=== PATIENT | female | born 1960 | race Caucasian/White ===

== ENCOUNTER 2016-11-14 19:39 | Emergency (ER) | payer BC ==
[2016-11-14 21:30] VITALS: BP 134/74
--- NOTE | 2016-11-14 22:08 | UC ---
Skin Complaint HPI - HPI Summary HPI Summary: Found sore area on R ribs/back this evening while brushing against the area, discovered it was a tick. Has not removed yet. - History of Current Complaint Chief Complaint: UCSkin Time Seen by Provider: 11/14/16 21:47 Stated Complaint: TICK BITE Hx Obtained From: Patient ?: No Onset/Duration: Lasting Hours Timing: Constant Onset Severity: Mild Current Severity: Mild Pain Intensity: 2 Pain Scale Used: 0-10 Numeric Character: Pain, Redness, Raised Aggravating: Touch Alleviating: Nothing - Allergy/Home Medications Allergies/Adverse Reactions: Allergies Allergy/AdvReac Type Severity Reaction Status Date / Time Amoxicillin Allergy Unknown Verified 11/14/16 21:31 Reaction Details Cefaclor [From Ceclor] Allergy Hives Verified 11/14/16 21:31 Cephalexin [From Keflex] Allergy Altered Verified 11/14/16 21:34 Mental Status Doxycycline Allergy Altered Verified 11/14/16 21:33 Mental Status Erythromycin Allergy Altered Verified 11/14/16 21:32 Mental Status Penicillins [PCN] Allergy Altered Verified 11/14/16 21:35 Mental Status Home Medications: Home Medications NK [No Home Medications Reported] 11/14/16 [History Confirmed 11/14/16] Review of Systems Constitutional: Negative Skin: Other - tick R ribs Eyes: Negative ENT: Negative Respiratory: Negative Cardiovascular: Negative Gastrointestinal: Negative Genitourinary: Negative Motor: Negative Neurovascular: Negative Musculoskeletal: Negative Neurological: Negative Psychological: Negative All Other Systems Reviewed And Are Negative: Yes PMH/Surg Hx/FS Hx/Imm Hx Previously Healthy: Yes Endocrine History Of: Denies: Diabetes, Thyroid Disease Cardiovascular History Of: Denies: Cardiac Disorders, Hypertension Respiratory History Of: Denies: COPD, Asthma GI/ History Of: Denies: Ulcer - Surgical History Surgical History: Yes Surgery Procedure, Year, and Place: D&C 1978 - Family History Known Family History: Negative: Blood Disorder - Social History Alcohol Use: Weekly Substance Use Type: None Smoking Status (MU): Never Smoked Tobacco - Immunization History Most Recent Influenza Vaccination: denies Physical Exam Triage Information Reviewed: Yes Appearance: Well-Appearing, No Pain Distress, Well-Nourished Vital Signs: Initial Vital Signs Temp 98.8 F 11/14/16 21:22 Pulse 68 11/14/16 21:22 Resp 16 11/14/16 21:22 BP 134/74 11/14/16 21:22 Pulse Ox 100 11/14/16 21:22 Vital Signs Reviewed: Yes Eye Exam: Normal Eyes: Positive: Conjunctiva Clear ENT Exam: Normal ENT: Positive: Normal ENT inspection, Hearing grossly normal, Pharynx normal, TMs normal Dental Exam: Normal Neck exam: Normal Neck: Positive: Supple, Nontender, No Lymphadenopathy Respiratory Exam: Normal Respiratory: Positive: Chest non-tender, Lungs clear, Normal breath sounds, No respiratory distress, No accessory muscle use Cardiovascular Exam: Normal Cardiovascular: Positive: RRR, No Murmur Musculoskeletal Exam: Normal Neurological Exam: Normal Neurological: Positive: Alert Psychological Exam: Normal Skin Exam: Other - tick removed with tick twisters from R trunk, pt mally well. Tick bite site benign with only local reactive erythema Course/Dx - Diagnoses Provider Diagnoses: tick removal Discharge - Discharge Plan Condition: Stable Disposition: HOME Patient Education Materials: Tick Bite (ED) Referrals: No Primary Care Phys,NOPCP [Primary Care Provider] - Additional Instructions: If you develop any of the following, please see your physician promptly: (1) Fever, chills, or generalized malaise associated with a headache. (2) A red round area at the site of the bite (or elsewhere) (3) Joint pain, joint swelling or generalized weakness. (4) Redness, swelling, or drainage at the site of the bite. Check yourself, your children and your pets for ticks whenever you've been in an area where ticks live. To remove a tick, grasp it firmly with some tweezers or a string in a slipknot as close to its head as possible and pull it steadily. Ticks do not have a typical "head" attached to their body. There are mouth parts sticking out which they use to feed. If there are mouth parts left behind in the wound there is NO increased risk of Lyme infection; however, the chances of a bacterial skin infection (cellulitis) are higher. If mouth parts remain after tick removal, the best thing to do is apply warm soaks to the area 3-4 times per day to encourage the skin to expel the foreign material. WHEN A TICK IS NOT ENGORGED AND HAS BEEN ON LESS THAN 24 HOURS - THE RISK FOR LYME IS NEGLIGIBLE. YOU CAN REMOVE THE TICK AND OBSERVE THE AREA ON YOUR OWN. FOLLOW-UP CARE: You should contact your private physician for follow-up care if you develop spreading redness near the site of the bite or on any other areas of the body. If you are unable to get a timely appointment, or if you are worsening, call us or return for re-evaluation.
== END 2016-11-14 22:00 | disposition home or self-care (01) ==
LOC: UCEAST 19:39
DX: S30.860A Insect bite (nonvenomous) of lower back and pelvis, initial encounter (principal); W57.XXXA Bitten or stung by nonvenomous insect and other nonvenomous arthropods, initial encounter; Z88.3 Allergy status to other anti-infective agents; Z88.0 Allergy status to penicillin
CPT/HCPCS: 99201; G0463

== ENCOUNTER 2018-03-30 16:49 | Emergency (ER) | payer BC ==
[2018-03-30 17:24] VITALS: BP 147/89
--- NOTE | 2018-03-30 18:29 | UC ---
Lower Extremity/Ankle HPI - HPI Summary HPI Summary: fell today right foot pain and bruised right knee - History of Current Complaint Chief Complaint: UCLowerExtremity Stated Complaint: R FOOT/KNEE INJURY Time Seen by Provider: 03/30/18 18:12 Hx Obtained From: Patient ?: No Onset/Duration: Sudden Onset Pain Intensity: 2 Pain Scale Used: 0-10 Numeric Aggravating Factor(s): Standing, Ambulation Alleviating Factor(s): Rest, Elevation Able to Bear Weight: Yes - with pain - Allergies/Home Medications Allergies/Adverse Reactions: Allergies Allergy/AdvReac Type Severity Reaction Status Date / Time amoxicillin Allergy Unknown Verified 03/30/18 17:13 Reaction Details cefaclor Allergy Hives Verified 03/30/18 17:13 cephalexin Allergy Altered Verified 03/30/18 17:13 Mental Status doxycycline Allergy Altered Verified 03/30/18 17:13 Mental Status erythromycin base Allergy Altered Verified 03/30/18 17:13 Mental Status MS Amoxicillin [Amoxicillin] Allergy Unknown Verified 11/14/16 21:31 Reaction Details MS Cefaclor [From Ceclor] Allergy Hives Verified 11/14/16 21:31 MS Cephalexin [From Keflex] Allergy Altered Verified 11/14/16 21:34 Mental Status MS Doxycycline [Doxycycline] Allergy Altered Verified 11/14/16 21:33 Mental Status MS Erythromycin Allergy Altered Verified 11/14/16 21:32 [Erythromycin] Mental Status MS Penicillins [PCN] Allergy Altered Verified 11/14/16 21:35 Mental Status Penicillins Allergy Altered Verified 03/30/18 17:13 Mental Status PMH/Surg Hx/FS Hx/Imm Hx Previously Healthy: Yes - Surgical History Surgical History: Yes Surgery Procedure, Year, and Place: D&C 1978 - Family History Known Family History: Positive: None Negative: Blood Disorder - Social History Occupation: Employed Full-time Lives: With Family Alcohol Use: Weekly Substance Use Type: None Smoking Status (MU): Never Smoked Tobacco - Immunization History Most Recent Influenza Vaccination: denies Review of Systems Constitutional: Negative Skin: Negative Eyes: Negative ENT: Negative Respiratory: Negative Cardiovascular: Negative Gastrointestinal: Negative Genitourinary: Negative Motor: Negative Neurovascular: Negative Musculoskeletal: Arthralgia - lateral right foot pain, right knee and left elbow bruised Neurological: Negative Psychological: Negative Is Patient Immunocompromised?: No All Other Systems Reviewed And Are Negative: Yes Physical Exam Triage Information Reviewed: Yes Appearance: Well-Appearing, No Pain Distress, Well-Nourished Vital Signs: Initial Vital Signs Temp 99.5 F 03/30/18 17:09 Pulse 87 03/30/18 17:09 Resp 18 03/30/18 17:09 BP 147/89 03/30/18 17:09 Pulse Ox 97 03/30/18 17:09 Vital Signs Reviewed: Yes Eye Exam: Normal Eyes: Positive: Conjunctiva Clear ENT Exam: Normal ENT: Positive: Normal ENT inspection, Hearing grossly normal. Negative: Trismus , Muffled voice, Hoarse voice Dental Exam: Normal Neck exam: Normal Neck: Positive: Supple, Nontender Respiratory Exam: Normal Respiratory: Positive: Chest non-tender, No respiratory distress, No accessory muscle use Cardiovascular Exam: Normal Cardiovascular: Positive: RRR, Pulses Normal, Brisk Capillary Refill Musculoskeletal Exam: Other Musculoskeletal: Positive: Strength Intact, ROM Intact, Edema @ - right lateral foot Neurological Exam: Normal Neurological: Positive: Alert, Muscle Tone Normal Psychological Exam: Normal Skin Exam: Normal Diagnostics - Radiology No standard instances Xray Interpretation: Positive (See Comments) Radiology Interpretation Completed By: ED Physician, Radiologist Lower Extremity Course/Dx - Course Course Of Treatment: cam boot non weight bearing crutches, pain med rice for with ortho this week - Differential Dx/Diagnosis Provider Diagnoses: fracture right 5th MT Discharge - Sign-Out/Discharge Documenting (check all that apply): Patient Departure All imaging exams completed and their final reports reviewed: Yes - Discharge Plan Condition: Stable Disposition: HOME Prescriptions: Hydrocodone/Acetaminophen [Hydrocodone-Acetamin 5-325 mg] 1 each PO Q6HR PRN # 15 tablet MDD 4 PRN Reason: Pain Patient Education Materials: Crutch Instructions (ED), Foot Fracture in Adults (ED), Abrasion (ED), Hypertension (ED), R.I.C.E. Treatment (ED) [place]errals: [facility] [place]] - 1 Week (for bp re-check ) Marcelino Butler MD [Medical Doctor] - 3 Days (orthopedic MD) Additional Instructions: Please remain non weight bearing until seen by orthopedic MD. - Billing Disposition and Condition Condition: STABLE Disposition: Home - Attestation Statements Provider Attestation: Per institutional requirements, I have reviewed the chart, however, I was not consulted specifically or made aware of this patient by the midlevel provider. I did not personally evaluate, interact with , or disposition this patient.
[2018-03-30] MEDS ORDERED: HYDROcodone/ACETAMIN 5-325 MG* 1 TAB PO ONE (18:30)
[2018-03-30] MEDS ORDERED: Tetan/Diph/Pertus SYR(Tdap)* 0.5 ML SYR(BOOSTRIX) use SYR IM ONE (18:38)
--- NOTE | 2018-03-31 08:09 | RAD ---
Indication: Left foot injury. 3 views of the left foot are reviewed. There is a transverse nondisplaced fracture that is mildly comminuted fracture through the proximal diaphysis of the fifth metatarsal. The remainder of the foot including the calcaneus and talus are unremarkable. IMPRESSION: Nondisplaced fracture proximal fifth metatarsal which is mildly comminuted. R0
--- NOTE | 2018-04-01 12:11 | UC ---
- Progress Note Progress Note: Patient Name: ADRI ROBLES Medical Record#: [id number] Ordering Physician: Erlinda Montana NP Acct.#: [id number] : 1960 Age: 58 Sex: F Location: [facility] Exam Date: 03/30/181728 ADM Status: DEP ER Order Information: FOOT RIGHT 3+ VWS Accession Number: [id number] CPT: 00885 Indication: Left foot injury. 3 views of the left foot are reviewed. There is a transverse nondisplaced fracture that is mildly comminuted fracture through the proximal diaphysis of the fifth metatarsal. The remainder of the foot including the calcaneus and talus are unremarkable. IMPRESSION: Nondisplaced fracture proximal fifth metatarsal which is mildly comminuted. R0 <Electronically signed by Reny Aguillon MD in OV> 03/31/18804 Dictated By: Reny Aguillon MD Dictated Date/Time: 03/31/18804 Transcribed Date/Time: 03/31/18803 Copy to: CC:Erlinda Montana NP; Eren Arriaga MD; No Primary Care Phys,NOPCP [facility] [address] [address] ph ([phone]) ph ([phone]) ph ([phone]) This report is only to be considered final once signed by the Provider(s) as displayed in the "<Electronically Signed by >" field (s). Absence of a signature indicates the report is in a draft status and still needs to be finalized. In the event this document was created by someone other than the signing Provider, the individual initiating the document will be listed in the "Entered by:" or "Dictated by:" jo. 1 of 1 Discharge - Sign-Out/Discharge Documenting (check all that apply): Post-Discharge Follow Up All imaging exams completed and their final reports reviewed: Yes - Discharge Plan Condition: Stable Disposition: HOME Prescriptions: Hydrocodone/Acetaminophen [Hydrocodone-Acetamin 5-325 mg] 1 each PO Q6HR PRN # 15 tablet MDD 4 PRN Reason: Pain Patient Education Materials: Crutch Instructions (ED), Foot Fracture in Adults (ED), Abrasion (ED), Hypertension (ED), R.I.C.E. Treatment (ED) Referrals: [facility] [place] [facility] [Outside] - 1 Week (for bp re-check ) Marcelino Butler MD [Medical Doctor] - 3 Days (orthopedic MD) Additional Instructions: Please remain non weight bearing until seen by orthopedic MD. - Billing Disposition and Condition Condition: STABLE Disposition: Home
== END 2018-03-30 19:20 | disposition home or self-care (01) ==
LOC: UCEAST 16:49
DX: S92.354A Nondisplaced fracture of fifth metatarsal bone, right foot, initial encounter for closed fracture (principal); S80.01XA Contusion of right knee, initial encounter; S50.02XA Contusion of left elbow, initial encounter; W19.XXXA Unspecified fall, initial encounter; Y93.9 Activity, unspecified; Y92.9 Unspecified place or not applicable; Z23 Encounter for immunization; Z88.1 Allergy status to other antibiotic agents; Z88.0 Allergy status to penicillin
CPT/HCPCS: 90715; 99213; G0463